=== PATIENT | male | born 1955 | race Caucasian/White ===

== ENCOUNTER 2018-06-04 12:23 | Day surgery (SDC) | payer BC ==
[~2018-06-04 12:23] MED LIST: CEFAZOLIN 2 Gram 2 GM/50 ML BAG IVPB ONE
[2018-06-04] MEDS ORDERED: MIDAZOLAM HCL 2MG/2ML VIAL IV ONE (12:24)
[2018-06-04] MEDS ORDERED: LIDOCAINE 2% MDV (20MG/ML) 20ML VIAL IV ONE (12:24)
[2018-06-04] MEDS ORDERED: FENTANYL PF 100MCG/2ML VIAL IV ONE (12:24)
[2018-06-04] MEDS ORDERED: PROPOFOL 10 MG/ML VIAL IV ONE (12:24)
== END 2018-06-04 16:50 | disposition home or self-care (01) ==
LOC: SUR 12:23
PROVIDERS: ATTEND Urology
DX: R39.15 Urgency of urination (principal); R35.1 Nocturia; N40.0 Benign prostatic hyperplasia without lower urinary tract symptoms; I10 Essential (primary) hypertension; M06.9 Rheumatoid arthritis, unspecified; N32.81 Overactive bladder
CPT/HCPCS: 52000; 00910; 93005; J3010; J0690